=== PATIENT | female | born 1975 | race Caucasian/White ===

== ENCOUNTER 2018-09-20 10:07 | Day surgery (SDC) | payer OTHER ==
[~2018-09-20] VITALS: Ht 172.7 cm; Wt 75.1 kg
[2018-09-20 10:43] VITALS: Ht 172.7 cm; Wt 75.1 kg
[2018-09-20] MEDS ORDERED: MULTIVITAMINS PO (10:50)
[2018-09-20] MEDS ORDERED: IBUPROFEN PO (10:50)
[2018-09-20 11:18] VITALS: BP 119/65; PULSE 58; RESP 18
[2018-09-20] MEDS ORDERED: MIDAZOLAM 1 MG/ML 2 ML INJ ONE ×2 (12:04)
[2018-09-20] MEDS ORDERED: FENTAnyl 50 MCG/ML VIAL ONE (12:04)
[2018-09-20 12:33] VITALS: BP 113/75; PULSE 64; RESP 19
== END 2018-09-20 13:11 | disposition home or self-care (01) ==
LOC: GIL 10:07
PROVIDERS: ATTEND Internal Medicine Gastroenterology
DX: K64.8 Other hemorrhoids (principal); Z80.0 Family history of malignant neoplasm of digestive organs
CPT/HCPCS: 45378; 84703; J2250; J3010